=== PATIENT | male | born 1960 | race Caucasian/White ===

== ENCOUNTER 2022-01-27 08:28 | Emergency (ER) | payer OTHER, SELFPAY ==
[2022-01-27 08:38] VITALS: BP 134/81; PULSE 88; RESP 16; TEMP 36.4; O2SAT 99
--- NOTE | 2022-01-27 08:50 | ED.ASTHMA ---
HPI - Asthma General Chief Complaint: Asthma Stated Complaint: asmtha Time Seen by Provider: 01/27/22 08:50 Source: patient, RN notes reviewed and old records reviewed Mode of arrival: ambulatory Limitations: no limitations History of Present Illness HPI Narrative: 61-year-old male presents to the [facility] with complaints of cough and shortness of breath since yesterday. Patient states he has had a cough and shortness of breath for couple years, saw veneer sander in the lung function test recently. Was notified by his veneer sander yesterday that he has asthma. Was prescribed Flovent, states he has not started taking it. Patient talking in full sentences. No acute distress noted. States for couple of years he has had chronic cough and congestion. Onset (ago): day(s) (2) Context: none known Asthma History: other (Dx yesterday) Related Data Home Medications Medication Instructions Recorded Confirmed bupropion HCl 150 mg tablet,12 hr mg PO 01/27/22 sustained-release cyclobenzaprine 10 mg tablet mg 01/27/22 fluticasone propionate 250 inhalation 01/27/22 mcg/actuation blister powder for inhalation (Flovent Diskus) fluticasone propionate 50 intranasal 01/27/22 mcg/actuation nasal spray,suspension levothyroxine 50 mcg tablet mcg 01/27/22 meclizine 25 mg tablet mg 01/27/22 ondansetron 8 mg disintegrating mg 01/27/22 tablet pantoprazole 40 mg tablet,delayed mg PO 01/27/22 release rosuvastatin 20 mg tablet mg 01/27/22 testosterone 30 mg/actuation (1.5 01/27/22 mL) transderm solution metered pump Allergies Allergy/AdvReac Type Severity Reaction Status Date / Time No Known Allergies Allergy Unknown Verified 01/27/22 08:54 Review of Systems Review of Systems: All systems reviewed & are unremarkable except as noted in HPI and below Constitutional: Constitutional: Reports no additional constitutional complaints Eyes: Eyes: Reports no additional eye complaints ENT: Reports system reviewed and no additional complaints, except as documented Cardiovascular: Cardiovascular: Reports no additional cardiovascular complaints, Denies chest pain and Denies dyspnea Respiratory: Respiratory: Reports as per HPI, Denies chest congestion, Reports cough, Reports dyspnea and Denies wheezing Gastrointestinal: Gastrointestinal: Reports no additional gastrointestinal complaints Musculoskeletal: Musculoskeletal: Reports no additional musculoskeletal complaints Integumentary/Breasts: Skin/Breast: Reports system reviewed and no additional complaints, except as docu Neurologic: Reports system reviewed and no additional complaints, except as documented Psychiatric: Psychiatric: Reports no additional psychiatric complaints Allergic/Immunologic: Allergic/Immunologic: Reports no additional allergic/immunologic complaints [facility] Past Medical History Medical History Anxiety and depression H/O gastroesophageal reflux (GERD) High cholesterol History of high blood pressure Thyroid disease Social History Social History (Updated 01/27/22 @ 08:54 by Cecily Garzon APRN) Occupation/Education: occupation Additional occupation/education comments: teacher Gender identity (if verbalized by the patient): Male Comments At the time of my signature, I reviewed and agree with the nursing past medical, surgical, social, and family history. There is no relevant family history pertinent to the patient complaint. Exam Const: General: cooperative, healthy appearing, comfortable, no acute distress, well developed, alert and average body habitus Nutritional Appearance: average body habitus Orientation/consciousness: patient oriented x3 Limitations: no limitations HENMT: Head: normal to inspection Ears: hearing grossly normal bilaterally Face/Nose/Sinus: Normal external nose present, Normal nares present, Normal nasal mucous membranes and turbinates present
== END 2022-01-27 09:07 | disposition home or self-care (01) ==
PROVIDERS: Emergency Provider Nurse Practitioner; PCP Internal Medicine
DX: J40 Bronchitis, not specified as acute or chronic (principal); F41.8 Other specified anxiety disorders; K21.9 Gastro-esophageal reflux disease without esophagitis; E78.00 Pure hypercholesterolemia, unspecified; I10 Essential (primary) hypertension
CPT/HCPCS: 99213; G0463

== ENCOUNTER 2022-05-17 19:07 | Emergency (ER) | payer OTHER, SELFPAY ==
[2022-05-17 19:18] VITALS: BP 148/98; PULSE 78; RESP 16; TEMP 36.4; O2SAT 99
--- NOTE | 2022-05-17 19:52 | ED.UPPEXIN ---
HPI - Extremity Injury (Upper) General Chief Complaint: Extremity Injury, Upper Stated Complaint: lt index finger injury Source: patient and RN notes reviewed History of Present Illness HPI narrative: 61 yo M presents to urgent care with a laceration to his left index finger tip, volar side. Pt states [employer], he was slicing potatoes when the knife cut him. Pt denies any other injury and has no other complaints. Pt is unknown on his last Tdap. Related Data Home Medications Medication Instructions Recorded Confirmed bupropion HCl 150 mg tablet,12 hr 150 mg PO DAILY 01/27/22 01/27/22 sustained-release cyclobenzaprine 10 mg tablet 10 mg PO PRN PRN Back Pain 01/27/22 01/27/22 fluticasone propionate 250 250 mcg inhalation BID 01/27/22 01/27/22 mcg/actuation blister powder for inhalation (Flovent Diskus) fluticasone propionate 50 2 spray intranasal BID 01/27/22 01/27/22 mcg/actuation nasal spray,suspension levothyroxine 50 mcg tablet 50 mcg PO DAILY 01/27/22 01/27/22 meclizine 25 mg tablet 25 mg PO TID 01/27/22 01/27/22 ondansetron 8 mg disintegrating 8 mg PO Q8H PRN Nausea 01/27/22 01/27/22 tablet pantoprazole 40 mg tablet,delayed 40 mg PO DAILY 01/27/22 01/27/22 release rosuvastatin 20 mg tablet 20 mg PO DAILY 01/27/22 01/27/22 testosterone 30 mg/actuation (1.5 2 pump topical DAILY 01/27/22 01/27/22 mL) transderm solution metered pump Allergies Allergy/AdvReac Type Severity Reaction Status Date / Time No Known Allergies Allergy Unknown Verified 01/27/22 08:54 Review of Systems Review of Systems: CONSTITUTIONAL: Denies fever, chills, or sweats. EYES: Denies visual changes, redness, or discharge. ENT: Denies otalgia and sore throat CARDIOVASCULAR: Denies chest pain, palpitations, or edema. RESPIRATORY: Denies cough or dyspnea. GASTROINTESTINAL: Denies abdominal pain, nausea, vomiting, or diarrhea. GENITOURINARY: Denies dysuria or hematuria. SKIN: laceration to left index finger MUSCULOSKELETAL: Denies back pain, joint pain, or myalgia. NEUROLOGIC: Denies headache, numbness, or weakness. Pertinent positives per HPI. [facility] Past Medical History Medical History Anxiety and depression H/O gastroesophageal reflux (GERD) High cholesterol History of high blood pressure Thyroid disease Social History Social History (Updated 01/27/22 @ 08:54 by Cecily Garzon APRN) Occupation/Education: occupation Additional occupation/education comments: teacher Gender identity (if verbalized by the patient): Male Comments At the time of my signature, I reviewed and agree with the nursing past medical, surgical, social, and family history. There is no relevant family history pertinent to the patient complaint. Exam Narrative: GENERAL: This is a well-nourished, well-developed patient, in no apparent distress. HEAD: normocephalic, atraumatic. EYES: Sclera clear/white. Vision is grossly intact. EARS: External ears normal, auditory canals clear and without drainage. Hearing grossly intact. NOSE: External nose normal with no obvious nasal discharge, nares without redness, no rhinorrhea. CARDIOVASCULAR: Regular rate. RESPIRATORY: No respiratory distress GASTROINTESTINAL: Abdomen soft, non-tender, nondistended. Bowel sounds are active. No hepato-splenomegaly, or palpable masses. No guarding. SKIN: 1.5 cm laceration to left index finger, distal phalanx, volar side. no nail involvement. NEURO: awake, alert, and oriented to person, place and time. There were no obvious focal neurologic abnormalities. EXTREMITIES: No clubbing, cyanosis, or edema. No joint tenderness, effusion, or edema noted. Course Course Level of Care: Express Care Visit Vital Signs Vital signs: Vital Signs Temperature 97.6 F 05/17/22 19:18 Pulse Rate 78 05/17/22 19:18 Respiratory Rate 16 05/17/22 19:18 Blood Pressure 148/98 H 05/17/22 19:18 Pulse Oximetry 99 03/2
[2022-05-17] MEDS: TETANUS,DIPHTHERIA,AC PERTUSSIS ADULT (0.5 ML) BOOSTRIX IM (19:54)
== END 2022-05-17 20:00 | disposition home or self-care (01) ==
PROVIDERS: Emergency Provider Nurse Practitioner Family; PCP Internal Medicine
DX: S61.211A Laceration without foreign body of left index finger without damage to nail, initial encounter (principal); F41.9 Anxiety disorder, unspecified; F32.A Depression, unspecified; Z23 Encounter for immunization; W26.0XXA Contact with knife, initial encounter
CPT/HCPCS: 12001; 90471; 90715; 99212; G0463

== ENCOUNTER 2022-05-25 18:26 | Emergency (ER) | payer OTHER, SELFPAY ==
[2022-05-25 18:35] VITALS: BP 132/92; PULSE 74; RESP 16; TEMP 36.2; O2SAT 97
--- NOTE | 2022-05-25 18:41 | ED.WOUNDLAC ---
HPI - Wound/Laceration General Chief Complaint: Wound/Laceration Stated Complaint: SUTURE REMOVAL Time Seen by Provider: 05/25/22 18:42 Source: patient and RN notes reviewed History of Present Illness HPI narrative: Patient is a 61-year-old male who presents to urgent care with request for suture removal to the left index finger. Patient was seen here 05/17 for suture placement to the left index finger. Five sutures were placed. Patient sliced his finger while cutting potatoes. Denies any drainage, erythema, or edema to the laceration. No signs or symptoms of infection. No other acute complaints. Patient aware of the plan of care. Some parts of this dictation were generated by voice recognition software and may contain typographical and/or grammatical inaccuracies. Related Data Home Medications Medication Instructions Recorded Confirmed bupropion HCl 150 mg tablet,12 hr 150 mg PO DAILY 01/27/22 01/27/22 sustained-release fluticasone propionate 250 250 mcg inhalation BID 01/27/22 01/27/22 mcg/actuation blister powder for inhalation (Flovent Diskus) fluticasone propionate 50 2 spray intranasal BID 01/27/22 01/27/22 mcg/actuation nasal spray,suspension levothyroxine 50 mcg tablet 50 mcg PO DAILY 01/27/22 01/27/22 pantoprazole 40 mg tablet,delayed 40 mg PO DAILY 01/27/22 01/27/22 release rosuvastatin 20 mg tablet 20 mg PO DAILY 01/27/22 01/27/22 testosterone 30 mg/actuation (1.5 2 pump topical DAILY 01/27/22 01/27/22 mL) transderm solution metered pump folic acid 1 mg tablet 05/25/22 05/25/22 lisinopril 20 mg tablet mg 05/25/22 loratadine 10 mg tablet mg 05/25/22 Allergies Allergy/AdvReac Type Severity Reaction Status Date / Time No Known Allergies Allergy Unknown Verified 05/25/22 18:39 Review of Systems Review of Systems: CONSTITUTIONAL: Denies fever, chills, or sweats. EYES: Denies visual changes, redness, or discharge. ENT: Denies rhinorrhea, congestion, sore throat, or otalgia. CARDIOVASCULAR: Denies chest pain, palpitations, or edema. RESPIRATORY: Denies cough or dyspnea. GASTROINTESTINAL: Denies abdominal pain, nausea, vomiting, or diarrhea. GENITOURINARY: Denies dysuria or hematuria. SKIN: Requesting suture removal from the left index finger MUSCULOSKELETAL: Denies back pain, joint pain, or myalgia. NEUROLOGIC: Denies headache, numbness, or weakness. All other systems reviewed are negative, except as documented in HPI. [facility] Past Medical History Medical History Anxiety and depression H/O gastroesophageal reflux (GERD) High cholesterol History of high blood pressure Thyroid disease Social History Social History (Updated 01/27/22 @ 08:54 by Cecily Garzon APRN) Occupation/Education: occupation Additional occupation/education comments: teacher Gender identity (if verbalized by the patient): Male Comments At the time of my signature, I reviewed and agree with the nursing past medical, surgical, social, and family history. There is no relevant family history pertinent to the patient complaint. Exam Narrative: GENERAL: This is a well-nourished, well-developed patient, in no apparent distress. HEAD: normocephalic, atraumatic. EYES: PERRL. Sclera clear/white. Vision is grossly intact. EARS: External ears normal NOSE: External nose normal with no obvious nasal discharge, nares without redness, no rhinorrhea. THROAT: Mucous membranes moist NECK: Neck supple, SKIN: 1-1/2 inch linear approximated wound to the left index finger with 5 sutures noted. Warm, intact with no suspicious lesions or rash, good texture and turgor. NEURO: awake, alert, and oriented to person, place and time. There were no obvious focal neurologic abnormalities. EXTREMITIES: No clubbing, cyanosis, or edema. Course Course Level of Care: Express Care Visit Vital Signs Vital signs: Vital Signs Temperature 97.1 F L 05/25/22 18:35 Pulse Rate 7
== END 2022-05-25 18:57 | disposition home or self-care (01) ==
PROVIDERS: Emergency Provider Nurse Practitioner Family; PCP Internal Medicine
DX: S61.211D Laceration without foreign body of left index finger without damage to nail, subsequent encounter (principal); W45.8XXD Other foreign body or object entering through skin, subsequent encounter; F41.9 Anxiety disorder, unspecified; F32.A Depression, unspecified; K21.9 Gastro-esophageal reflux disease without esophagitis; E78.00 Pure hypercholesterolemia, unspecified; I10 Essential (primary) hypertension; E07.9 Disorder of thyroid, unspecified
CPT/HCPCS: 99211; G0463

== ENCOUNTER 2023-08-23 07:56 | Outpatient (CLI) | payer OTHER, SELFPAY ==
--- NOTE | ~2023-08-23 | US_ITS ---
Right upper quadrant ABDOMINAL ULTRASOUND Ordering provider: Lindsay Goncalves, History: . Fatty (change of) liver, not elsewhere classified . Comparison: None. FINDINGS: LIVER: Normal size and echotexture. No focal hepatic lesions or perihepatic fluid collections are jocelyne ntified. Normal flow of the portal vein. GALLBLADDER: Tiny echogenic foci are noted which are not moving or shadowing most likely small polyps . Follow-up advised. No evidence for stones, sludge, gallbladder wall thickening or pericholecystic f luid collections. A negative sonographic Deras's sign was noted. The wall thickness is 0.2 cm. BILIARY DUCTS: No evidence for intra or extrahepatic biliary dilation. Common bile duct measures 4 mm in diameter which is within normal limits. PANCREAS: Normal echotexture and size. KIDNEYS: Right kidney measures 12.8 cm in length with no evidence for hydronephrosis, solid renal mas s, renal calculi or perinephric fluid collections. A cyst is seen measuring 4.8 x 4 x 4.2 cm. UPPER ABDOMINAL AORTA: Normal in caliber. IVC: Patent. FREE FLUID: None. IMPRESSION: 1. 2 small echogenic foci of the gallbladder most likely polyps. Follow-up advised. Right renal cyst. Otherwise, Unremarkable right upper quadrant ultrasound of the abdomen. Reviewed, dictated and finalized at location A. IMPRESSION: 1. 2 small echogenic foci of the gallbladder most likely polyps. Follow-up advi sed. Right renal cyst. Otherwise, Unremarkable right upper quadrant ultrasound of th e abdomen.
== END 2023-08-23 07:57 ==
PROVIDERS: PCP Internal Medicine; Visit Provider Internal Medicine
DX: K76.0 Fatty (change of) liver, not elsewhere classified (principal); N28.1 Cyst of kidney, acquired
CPT/HCPCS: 76705